=== PATIENT | female | born 2000 | race Caucasian/White ===

== ENCOUNTER 2019-05-29 17:36 | Emergency (ER) | payer MEDICAID ==
[~2019-05-29] VITALS: Ht 170.2 cm; Wt 95.3 kg
[2019-05-29 17:57] VITALS: BP 149/100
[2019-05-29] MEDS ORDERED: LIDOCAINE 1%-EPI 1:100,000 20 ML VIAL TP ONE (18:30)
[2019-05-29] MEDS ORDERED: LIDOCAINE 1%-EPI 1:100,000 20 ML VIAL ONE (18:41)
--- NOTE | 2019-05-29 18:58 | NUR ---
AT BEDSIDE PERFORMING I&D
== END 2019-05-29 19:28 | disposition home or self-care (01) ==
LOC: ER 17:41
DX: J86.9 Pyothorax without fistula (principal); F17.200 Nicotine dependence, unspecified, uncomplicated; Q89.3 Situs inversus; Z98.890 Other specified postprocedural states; Z60.2 Problems related to living alone
CPT/HCPCS: 10060; 99283; 99406; J3490